=== PATIENT | female | born 1940 | race Caucasian/White ===

== ENCOUNTER 2021-12-21 12:59 | Observation (INO) ==
[2021-12-21] MEDS ORDERED: Albuterol HFA INHALER 8 gm MDI INH PRN (13:22)
[2021-12-21] MEDS ORDERED: Ondansetron 4 mg VIAL 2 MG/ML 2 ml VIAL IV PRN (13:44)
[2021-12-21] MEDS ORDERED: Vancomycin per Pharmacy 1 EA NOTE FOLLOW UP PRN (17:37)
[2021-12-21] MEDS ORDERED: Clindamycin 600 MG/D5W BAG 600 MG/50 ML BAG IV SCH (18:00)
[2021-12-21] MEDS ORDERED: Vancomycin 1,250 MG in NS 0.9% 250 ml 250 ML IVPB ONE (18:00)
[2021-12-21] MEDS: Mometasone/Formoter 200/5 MDI INH SCH (19:03)
[2021-12-21 21:45] LABS: ABS Lymphocytes 0.9 10^3/ul (1.0-4.8); ABS Monocytes 0.7 10^3/ul (0-0.8); ABS Neutrophils 4.3 10^3/ul (1.5-7.7); Eosinophil % 0.7 %; Hematocrit 30 % (35-47); Hemoglobin 9.5 g/dL (12.0-16.0); Lymphocyte % 15.8 %; Mean Corpuscular HGB Conc 32 g/dL (31-36); Mean Corpuscular Hemoglobin 31 pg (27-31); Mean Corpuscular Volume 96 fL (80-97); Mean Platelet Volume 6.8 fL (7.4-10.4); Platelet Count 287 10^3/uL (150-450); Red Blood Count 3.09 10^6 /uL (3.70-4.87); Red Cell Distribution Width 19 % (10-15)
[2021-12-21 22:04] LABS: ALT 10 U/L (7-52); Albumin 3.2 g/dL (3.2-5.2); Albumin/Globulin Ratio 1.3 (1-3); Alkaline Phosphatase 38 U/L (35-149); Blood Urea Nitrogen 17 mg/dL (6-24); C Reactive Protein 74.65 mg/L (<8.01); CO2 Carbon Dioxide 24 mmol/L (22-32); Calcium 8.8 mg/dL (8.6-10.3); Chloride 106 mmol/L (101-111); Globulin 2.4 g/dL (2-4); Glucose 116 mg/dL (70-100); Sodium 139 mmol/L (135-145); Total Protein 5.6 g/dL (6.4-8.9); eGFR CKD-EPI 82.6 (>60)
[2021-12-21 22:07] LABS: Anion Gap 9 mmol/L (2-11)
[2021-12-21 23:18] LABS: Potassium Redraw 4.3 mmol/L (3.5-5.0)
[2021-12-22] MEDS ORDERED: Clindamycin 600 MG/D5W BAG 600 MG/50 ML BAG IV SCH (06:00)
[2021-12-22] MEDS: Mometasone/Formoter 200/5 MDI INH SCH ×2 (06:58→18:45)
[2021-12-22] MEDS: SPIRIVA Respimat (tiotropium) 2.5 mcg/inh Inhaler INH SCH ×2 (06:58→07:05)
[2021-12-22] MEDS ORDERED: DALBAVANCIN HCL (NF) 500 MG/25 ML VIAL IVPB ONE (13:01)
[2021-12-22] MEDS ORDERED: DALVANCE 1500 MG IV ONCE (for CrCl >/= 30 or regular HD) IVPB ONE (14:00)
[2021-12-22 15:09] VITALS: BP 124/88
[2021-12-22] MEDS ORDERED: Vancomycin 1,250 MG in NS 0.9% 250 ml 250 ML IVPB SCH (18:00)
== END 2021-12-22 19:00 | disposition home or self-care (01) ==
LOC: MED
PROVIDERS: ADMIT Hospitalist; ATTEND Hospitalist

== ENCOUNTER 2023-02-18 19:13 | Observation (INO) ==
[2023-02-18] MEDS ORDERED: Lactated Ringers 1000 ml BAG 1,000 ML IV ONE (20:07)
[2023-02-18 20:35] LABS: ABS Lymphocytes 0.1 10^3/uL (1.0-4.8); ABS Monocytes 0.4 10^3/uL (0.0-0.9); ABS Neutrophils 15.4 10^3/uL (1.5-7.6); ABS Nucleated RBC 0.01 10^3/ul; Hematocrit 27.1 % (35-45); Hemoglobin 8.9 g/dL (11.5-14.3); Lymphocyte % 0.9 %; Mean Corpuscular Hemoglobin 31.2 pg (27-33); Mean Corpuscular Hgb Conc 32.9 g/dL (31-36); Mean Corpuscular Volume 94.8 fL (80-97); Mean Platelet Volume 6.6 fL (7.5-11.2); Nucleated Red Blood Cells % 0.1 %/100WBC (0.0-0.8); Platelet Count 246 10^3/uL (150-450); Red Blood Count 2.86 10^6/uL (3.63-4.92); Red Cell Distribution Width 17.1 % (12-17); White Blood Count 15.9 10^3/uL (3.8-11.8)
[2023-02-18 20:42] LABS: INR 2.38 (0.83-1.13)
[2023-02-18 20:54] LABS: Albumin 3.3 g/dL (3.2-5.2); Albumin/Globulin Ratio 0.9 (1-3); Creatinine, Serum 1.28 mg/dL (0.51-0.95); Globulin 3.5 g/dL (2-4); Total Bilirubin 1.3 mg/dL (0.2-1.0); Total Protein 6.8 g/dL (6.4-8.9); eGFR CKD-EPI 41.8 (>60)
[2023-02-18] MEDS ORDERED: Iodixanol (CONTRAST) 320 MG/ML 100 ML SDV IV ONE (21:39)
[2023-02-18 22:14] LABS: High Sensitivity Troponin 1 Hr 13 pg/mL (<15)
[2023-02-18 22:41] LABS: Urine Appearance Cloudy; Urine Bilirubin Negative (Negative); Urine Blood Negative (Negative); Urine Color Amber; Urine Glucose Negative (Negative); Urine Ketones Trace (Negative); Urine Nitrite Negative (Negative); Urine Protein 1+(30 mg/dL) (Negative); Urine Specific Gravity 1.021 (1.002-1.030); Urine Urobilinogen Positive (Negative)
[2023-02-18 23:18] LABS: Urine Bacteria Absent (Absent); Urine Red Blood Cell Trace(0-2/hpf) (Absent); Urine Squamous Epithelial Cell Present (Absent); Urine White Blood Cell 2+(11-20/hpf) (Absent)
[2023-02-19] MEDS ORDERED: DOXYcycline 100 MG in NS 0.9% 250 ml 250 ML IVPB ONE (00:50)
[2023-02-19] MEDS ORDERED: cefTRIAXone 1 gm/50 mL D5W 1 GM/50 ML BAG IV ONE (00:50)
[2023-02-19] MEDS ORDERED: Ondansetron 4 mg VIAL 2 MG/ML 2 ml VIAL IV ONE (03:18)
[2023-02-19] MEDS ORDERED: Lactated Ringers 1000 ml BAG 1,000 ML IV SCH ×2 (05:00)
[2023-02-19] MEDS ORDERED: Fluticasone NASAL SPRAY 50MCG 16 gm SPRAY BTL INTRANASAL PRN (05:40)
[2023-02-19] MEDS ORDERED: Albuterol HFA INHALER 8 gm MDI INH PRN (05:40)
[2023-02-19] MEDS ORDERED: Lidocaine PATCH 5% PATCH TRANSDERM PRN (06:43)
[2023-02-19] MEDS: SPIRIVA Respimat (tiotropium) 2.5 mcg/inh Inhaler INH SCH (08:04)
[2023-02-19 08:35] LABS: ABS Lymphocytes 0.3 10^3/uL (1.0-4.8); ABS Monocytes 0.3 10^3/uL (0.0-0.9); ABS Neutrophils 10.8 10^3/uL (1.5-7.6); ABS Nucleated RBC 0.01 10^3/ul; Hematocrit 28.2 % (35-45); Hemoglobin 9.3 g/dL (11.5-14.3); Lymphocyte % 2.7 %; Mean Corpuscular Hemoglobin 31.1 pg (27-33); Mean Corpuscular Hgb Conc 33.1 g/dL (31-36); Mean Corpuscular Volume 93.9 fL (80-97); Mean Platelet Volume 6.9 fL (7.5-11.2); Nucleated Red Blood Cells % 0.1 %/100WBC (0.0-0.8); Platelet Count 249 10^3/uL (150-450); Red Cell Distribution Width 17.6 % (12-17); White Blood Count 11.4 10^3/uL (3.8-11.8)
[2023-02-19 08:54] LABS: INR 2.07 (0.83-1.13)
[2023-02-19 09:20] LABS: % Iron Saturation 10 % (15-55); .Transferrin 147 mg/dL (203-362); Iron < 20 ug/dL (50-212); Total Iron Binding Capacity 206 mcg/dL (250-450); Transferrin 147 mg/dL (203-362); Unsaturated Iron Binding 186 ug/dL
[2023-02-19] MEDS: Cholecalciferol (VIT D3) 1,000 unit TAB PO SCH (09:25)
[2023-02-19] MEDS: Vitamin THERAPEUTIC TAB PO SCH (09:25)
[2023-02-19 09:26] LABS: ALT 9 U/L (7-52); AST 17 U/L (13-39); Albumin 3.1 g/dL (3.2-5.2); Albumin/Globulin Ratio 0.9 (1-3); Alkaline Phosphatase 49 U/L (35-149); Anion Gap 9 mmol/L (2-16); Blood Urea Nitrogen 27 mg/dL (6-24); CO2 Carbon Dioxide 25 mmol/L (22-32); Calcium 9.3 mg/dL (8.6-10.3); Chloride 97 mmol/L (101-111); Creatinine, Serum 0.79 mg/dL (0.51-0.95); Direct Bilirubin 0.6 mg/dL (0.03-0.18); Globulin 3.3 g/dL (2-4); Glucose 98 mg/dL (70-100); Magnesium 1.6 mg/dL (1.9-2.7); Potassium 3.7 mmol/L (3.5-5.0); Sodium 131 mmol/L (135-145); Total Bilirubin 1.2 mg/dL (0.2-1.0); Total Protein 6.4 g/dL (6.4-8.9); eGFR CKD-EPI 74.6 (>60)
[2023-02-19 09:42] LABS: Ferritin 253.3 ng/mL (11-307)
[2023-02-19 09:46] LABS: Vitamin B12 > 1450 pg/mL (180-914)
[2023-02-19] MEDS ORDERED: Ondansetron 4 mg VIAL 2 MG/ML 2 ml VIAL IV PRN (10:00)
[2023-02-19] MEDS ORDERED: guaiFENesin 100 mg/5 ml LIQ unit dose cup PO PRN (10:24)
[2023-02-19] MEDS ORDERED: Magnesium Sulfate 2 gm BAG 2 GM/50 ML BAG IVPB ONE (11:02)
[2023-02-19] MEDS ORDERED: DOXYcycline 100 MG in NS 0.9% 250 ml 250 ML IVPB SCH (14:00)
[2023-02-19] MEDS: TOFACITINIB 11 MG PO SCH (14:43)
[2023-02-19] MEDS: Prochlorperazine 5 mg/ml 2 ml VIAL (10 mg) IV PRN (14:45)
[2023-02-19] MEDS: DOXYcycline 100 MG in NS 0.9% 250 ml 250 ML IVPB SCH (14:46)
[2023-02-19] MEDS: Ferric Gluconate IV 250 MG in NS 0.9% 250 ml 200 ML IVPB SCH (16:11)
[2023-02-20] MEDS: DOXYcycline 100 MG in NS 0.9% 250 ml 250 ML IVPB SCH ×2 (01:51→14:50)
[2023-02-20] MEDS ORDERED: cefTRIAXone 1 gm/50 mL D5W 1 GM/50 ML BAG IV SCH (02:00)
[2023-02-20 06:17] LABS: ABS Lymphocytes 0.3 10^3/uL (1.0-4.8); ABS Monocytes 0.6 10^3/uL (0.0-0.9); ABS Neutrophils 9.8 10^3/uL (1.5-7.6); ABS Nucleated RBC 0.02 10^3/ul; Hematocrit 29.6 % (35-45); Hemoglobin 9.8 g/dL (11.5-14.3); Lymphocyte % 2.6 %; Mean Corpuscular Hemoglobin 31.2 pg (27-33); Mean Corpuscular Hgb Conc 33.1 g/dL (31-36); Mean Corpuscular Volume 94.2 fL (80-97); Mean Platelet Volume 6.6 fL (7.5-11.2); Nucleated Red Blood Cells % 0.1 %/100WBC (0.0-0.8); Platelet Count 247 10^3/uL (150-450); Red Blood Count 3.14 10^6/uL (3.63-4.92); Red Cell Distribution Width 17.1 % (12-17); White Blood Count 10.6 10^3/uL (3.8-11.8)
[2023-02-20 06:38] LABS: Calcium 9.3 mg/dL (8.6-10.3); Creatinine, Serum 0.46 mg/dL (0.51-0.95); Magnesium 1.8 mg/dL (1.9-2.7); Phosphorus 1.7 mg/dL (2.5-5.0); Potassium 3.4 mmol/L (3.5-5.0); eGFR CKD-EPI 95.5 (>60)
[2023-02-20 07:21] LABS: Folate 10.98 ng/mL (5.90-24.80)
[2023-02-20] MEDS: Prochlorperazine 5 mg/ml 2 ml VIAL (10 mg) IV PRN ×2 (07:28→14:49)
[2023-02-20] MEDS: SPIRIVA Respimat (tiotropium) 2.5 mcg/inh Inhaler INH SCH (09:08)
[2023-02-20] MEDS: Vitamin THERAPEUTIC TAB PO SCH (10:03)
[2023-02-20] MEDS: Cholecalciferol (VIT D3) 1,000 unit TAB PO SCH (10:03)
[2023-02-20] MEDS: Ferric Gluconate IV 250 MG in NS 0.9% 250 ml 200 ML IVPB SCH (10:06)
[2023-02-20] MEDS ORDERED: TOFACITINIB CITRATE 11 MG PO SCH (12:00)
[2023-02-20] MEDS: TOFACITINIB 11 MG PO SCH (14:56)
[2023-02-20 21:12] VITALS: BP 144/77
== END 2023-02-20 19:20 | disposition home or self-care (01) ==
LOC: EDHOLD 19:13 → ED 19:13 → MEDTELE 02-19 05:00 → SUATTDRO 02-19 05:00 → MEDTELE 02-19 07:57
PROVIDERS: ADMIT Internal Medicine; ATTEND Student in an Organized Health Care Education/Training Program

== ENCOUNTER 2024-03-05 10:26 | Observation (INO) ==
[2024-03-05 13:26] LABS: ABS Lymphocytes 0.4 10^3/uL (1.0-4.8); ABS Monocytes 0.6 10^3/uL (0.0-0.9); ABS Neutrophils 6.1 10^3/uL (1.5-7.6); ABS Nucleated RBC 0.01 10^3/ul; Eosinophil % 0.2 %; Hematocrit 29.9 % (35-45); Lymphocyte % 5.5 %; Mean Corpuscular Hemoglobin 31.8 pg (27-33); Mean Corpuscular Hgb Conc 33.3 g/dL (31-36); Mean Corpuscular Volume 95.5 fL (80-97); Mean Platelet Volume 6.5 fL (7.5-11.2); Nucleated Red Blood Cells % 0.1 %/100WBC (0.0-0.8); Platelet Count 213 10^3/uL (150-450); Red Blood Count 3.13 10^6/uL (3.63-4.92); White Blood Count 7.2 10^3/uL (3.8-11.8)
[2024-03-05 13:43] LABS: INR 1.58 (0.85-1.14)
[2024-03-05 14:14] LABS: Potassium 4.3 mmol/L (3.5-5.0)
[2024-03-05 14:38] LABS: Albumin 3.6 g/dL (3.5-5.7); Albumin/Globulin Ratio 1.3 (1-3); Calcium 8.9 mg/dL (8.6-10.3); Creatinine, Serum 0.53 mg/dL (0.51-0.95); Globulin 2.7 g/dL (2-4); Total Bilirubin 0.6 mg/dL (0.2-1.0); Total Protein 6.3 g/dL (6.4-8.9); eGFR CKD-EPI 91.7 (>60)
[2024-03-05] MEDS: Iohexol 350 (CONTRAST) 500 ML MDV IV ONE (15:13)
[2024-03-05] MEDS: Enoxaparin 100 MG/ML SYR SUBCUT ONE (16:50)
[2024-03-05] MEDS ORDERED: NON FORMULARY MED (Acetaminophen 500 mg Tablet) PO PRN (20:49)
[2024-03-05] MEDS ORDERED: Sulfur Hexaflouride MICROSPHR 25 MG VIAL IV PRN (21:27)
[2024-03-06] MEDS: Enoxaparin 60 MG/0.6 ML SYR SUBCUT SCH (06:00)
[2024-03-06 06:21] LABS: ABS Lymphocytes 0.2 10^3/uL (1.0-4.8); ABS Monocytes 0.7 10^3/uL (0.0-0.9); ABS Neutrophils 3.3 10^3/uL (1.5-7.6); ABS Nucleated RBC 0.01 10^3/ul; Eosinophil % 0.7 %; Hematocrit 29.2 % (35-45); Hemoglobin 9.8 g/dL (11.5-14.3); Lymphocyte % 4.8 %; Mean Corpuscular Hemoglobin 31.6 pg (27-33); Mean Corpuscular Hgb Conc 33.5 g/dL (31-36); Mean Corpuscular Volume 94.4 fL (80-97); Mean Platelet Volume 6.6 fL (7.5-11.2); Nucleated Red Blood Cells % 0.1 %/100WBC (0.0-0.8); Platelet Count 199 10^3/uL (150-450); Red Blood Count 3.09 10^6/uL (3.63-4.92); Red Cell Distribution Width 16.3 % (12-17); White Blood Count 4.2 10^3/uL (3.8-11.8)
[2024-03-06] MEDS ORDERED: TOFACITINIB CITRATE 11 MG PO SCH (09:00)
[2024-03-06 09:26] VITALS: BP 108/76
[2024-03-06] MEDS: Cholecalciferol (VIT D3) 1,000 unit TAB PO SCH (10:03)
[2024-03-06] MEDS: Enoxaparin 30 MG/0.3 ML SYR SUBCUT ONE (12:28)
== END 2024-03-06 13:40 | disposition home or self-care (01) ==
LOC: ED 10:26 → EDHOLD 10:26 → MED 23:05
PROVIDERS: ADMIT Internal Medicine; ATTEND Student in an Organized Health Care Education/Training Program